=== PATIENT | female | born 1975 ===

== ENCOUNTER 2017-03-11 09:17 | Emergency (ER) | payer BC ==
[2017-03-11 09:52] VITALS: BP 136/88
--- NOTE | 2017-03-11 10:16 | RAD ---
INDICATION: Right shoulder pain. TECHNIQUE: 4 views of the right shoulder were obtained. FINDINGS: The bones are in normal alignment. No fracture is seen. There is a calcific deposit adjacent to the superior lateral aspect of the humeral head. Joint spaces appear maintained. No arthritic change is noted. IMPRESSION: CALCIFICATION ADJACENT TO THE SUPERIOR LATERAL ASPECT OF THE HUMERAL HEAD MOST CONSISTENT WITH CALCIFIC TENDINITIS OR BURSITIS.
--- NOTE | 2017-03-11 10:39 | UC ---
Upper Extremity HPI - HPI Summary HPI Summary: 42 year old female presents with right shoulder pain. - History of Current Complaint Chief Complaint: UCUpperExtremity Stated Complaint: RIGHT SHOULDER PAIN Time Seen by Provider: 03/11/17 09:43 Hx Obtained From: Patient Hx Last Menstrual Period: 1 wk ago Onset/Duration: Sudden Onset Severity Initially: Moderate Severity Currently: Moderate Pain Scale Used: 0-10 Numeric - 8 - Allergies/Home Medications Allergies/Adverse Reactions: Allergies Allergy/AdvReac Type Severity Reaction Status Date / Time No Known Allergies Allergy Verified 03/11/17 09:44 Home Medications: Home Medications Levothyroxine TAB* [Synthroid 25 MCG TAB*] 25 mcg PO DAILY 03/11/17 [History Confirmed 03/11/17] Mesalamine (NF) [Lialda (NF)] 3 tab PO DAILY 03/11/17 [History Confirmed ] PMH/Surg Hx/FS Hx/Imm Hx Previously Healthy: Yes - Surgical History Surgical History: Yes Surgery Procedure, Year, and Place: [place], appy, fallopian tube removal, sinus surgery, carpal tunnel right wrist - Social History Alcohol Use: Weekly Substance Use Type: None Smoking Status (MU): Never Smoked Tobacco Review of Systems Constitutional: Negative Skin: Negative Eyes: Negative ENT: Negative Respiratory: Negative Cardiovascular: Negative Gastrointestinal: Negative Genitourinary: Negative Motor: Negative Neurovascular: Negative Musculoskeletal: Other: - right shoulder pain Neurological: Negative Psychological: Negative All Other Systems Reviewed And Are Negative: Yes Physical Exam Triage Information Reviewed: Yes Vital Signs: Initial Vital Signs Temp 36.7 C 03/11/17 09:46 Pulse 79 03/11/17 09:46 Resp 16 03/11/17 09:46 BP 136/88 03/11/17 09:46 Pulse Ox 100 03/11/17 09:46 Eye Exam: Normal ENT Exam: Normal Dental Exam: Normal Neck exam: Normal Neck: Positive: 1 Respiratory Exam: Normal Cardiovascular Exam: Normal Abdominal Exam: Normal Musculoskeletal: Positive: Other: - right shoulder pain Neurological Exam: Normal Psychological Exam: Normal Skin Exam: Normal Upper Extremity Course/Dx - Differential Dx/Diagnosis Provider Diagnoses: right shoulder pain. right frozen shoulder Discharge - Discharge Plan Condition: Stable Disposition: HOME Prescriptions: Methocarbamol TAB* [Robaxin 500 MG TAB*] 500 mg PO TID PRN #30 tab PRN Reason: Spasms Methylprednisolone [Medrol Dosepak 4 MG*] 4 mg PO .SEE STEPHANIE INSTRUCTION #21 tab Patient Education Materials: Rotator Cuff Tendinitis (ED), Adhesive Capsulitis (ED) Forms: *Work Release Referrals: Montez Lucas MD [Medical Doctor] - NELLY Bonilla [Primary Care Provider] -
== END 2017-03-11 11:22 | disposition home or self-care (01) ==
LOC: UCCORT 09:17
DX: M75.01 Adhesive capsulitis of right shoulder (principal)
CPT/HCPCS: 99212; G0463